=== PATIENT | female | born 1960 | race African-American/Black ===

== ENCOUNTER 2020-04-29 13:09 | Inpatient (IN) ==
[2020-04-29] MEDS ORDERED: Haloperidol 5 mg/ml SDV IV/IM 5 MG/ML AMP IM ONE (13:19)
[2020-04-29 13:48] LABS: ABS Lymphocytes 0.8 10^3/ul (1.0-4.8); ABS Monocytes 0.3 10^3/ul (0-0.8); ABS Neutrophils 2.8 10^3/ul (1.5-7.7); Eosinophil % 0.2 %; Hematocrit 41 % (35-47); Hemoglobin 13.2 g/dL (12.0-16.0); Mean Corpuscular HGB Conc 32 g/dL (31-36); Mean Corpuscular Hemoglobin 29 pg (27-31); Mean Corpuscular Volume 90 fL (80-97); Mean Platelet Volume 9.3 fL (7.4-10.4); Nucleated Red Blood Cells % 0.1; Platelet Count 188 10^3/uL (150-450); Red Blood Count 4.53 10^6 /uL (3.70-4.87); Red Cell Distribution Width 14 % (10-15); White Blood Count 3.9 10^3/uL (3.5-10.8)
[2020-04-29 14:05] LABS: ALT 12 U/L (7-52); AST 14 U/L (13-39); Albumin 4.7 g/dL (3.2-5.2); Albumin/Globulin Ratio 1.6 (1-3); Alkaline Phosphatase 84 U/L (34-104); Anion Gap 13 mmol/L (2-11); BUN/Creatinine Ratio 21.1 (8-20); Blood Urea Nitrogen 16 mg/dL (6-24); CO2 Carbon Dioxide 26 mmol/L (22-32); Chloride 105 mmol/L (101-111); EGFR African American 94.9 (>60); EGFR Non-African American 78.4 (>60); Glucose 102 mg/dL (70-100); Potassium 3.7 mmol/L (3.5-5.0); Sodium 144 mmol/L (135-145); Total Protein 7.7 g/dL (6.4-8.9)
[2020-04-29 14:17] LABS: Acetaminophen < 15 mcg/mL; Alcohol, S < 10 mg/dL (<10); Salicylate < 2.50 mg/dL (<30); Valproic Acid < 13.0 mcg/mL (50-100)
[2020-04-29 14:31] LABS: TSH Ultra Thyroid Stim Horm 0.88 mcIU/mL (0.34-5.60)
[2020-04-29] MEDS ORDERED: Al Hydrox/Mg Hydrox/Simet LIQ 30 ML UDC PO PRN (16:58)
[2020-04-29] MEDS ORDERED: Nicotine GUM 2MG FRUIT FLAVOR PO PRN (16:58)
[2020-04-30] MEDS ORDERED: Lorazepam PYXIS KEY PRN (12:28)
[2020-04-30] MEDS ORDERED: LORazepam 2 mg VIAL 1 ml IM ONE (12:28)
[2020-05-01] MEDS: Aspirin EC 81 mg TAB.EC (enteric coated) PO SCH (11:27)
[2020-05-02] MEDS: Aspirin EC 81 mg TAB.EC (enteric coated) PO SCH (14:29)
[2020-05-03] MEDS: Aspirin EC 81 mg TAB.EC (enteric coated) PO SCH (10:14)
[2020-05-03] MEDS ORDERED: Lorazepam PYXIS KEY PRN (10:14)
[2020-05-03] MEDS ORDERED: LORazepam 2 mg VIAL 1 ml IM ONE (10:14)
[2020-05-03] MEDS ORDERED: Lorazepam PYXIS KEY ONE (10:22)
[2020-05-03] MEDS ORDERED: LORazepam 2 mg VIAL 1 ml ONE (10:22)
[2020-05-04] MEDS: Aspirin EC 81 mg TAB.EC (enteric coated) PO SCH (11:31)
[2020-05-05] MEDS: Aspirin EC 81 mg TAB.EC (enteric coated) PO SCH (12:11)
[2020-05-06] MEDS: Aspirin EC 81 mg TAB.EC (enteric coated) PO SCH (08:50)
[2020-05-06] MEDS: Multivitamins/Minerals TAB PO SCH (11:34)
[2020-05-07] MEDS: Aspirin EC 81 mg TAB.EC (enteric coated) PO SCH (10:16)
[2020-05-07] MEDS: Multivitamins/Minerals TAB PO SCH (10:17)
[2020-05-08] MEDS ORDERED: Haloperidol 5 mg/ml SDV IV/IM 5 MG/ML AMP IM ONE (09:54)
[2020-05-08] MEDS: Aspirin EC 81 mg TAB.EC (enteric coated) PO SCH (10:32)
[2020-05-08] MEDS: Multivitamins/Minerals TAB PO SCH (10:33)
[2020-05-09] MEDS: Aspirin EC 81 mg TAB.EC (enteric coated) PO SCH (12:18)
[2020-05-09] MEDS: Multivitamins/Minerals TAB PO SCH (12:19)
[2020-05-09] MEDS ORDERED: Haloperidol 5 mg/ml SDV IV/IM 5 MG/ML AMP IM PRN (18:25)
[2020-05-10] MEDS ORDERED: Haloperidol 5 mg/ml SDV IV/IM 5 MG/ML AMP IM PRN ×2 (08:24→11:09)
[2020-05-10] MEDS: Aspirin EC 81 mg TAB.EC (enteric coated) PO SCH (09:32)
[2020-05-10] MEDS: Multivitamins/Minerals TAB PO SCH (09:33)
[2020-05-10 10:55] LABS: ABS Eosinophils 0.1 10^3/ul (0-0.6); ABS Lymphocytes 0.9 10^3/ul (1.0-4.8); ABS Monocytes 0.2 10^3/ul (0-0.8); ABS Neutrophils 1.8 10^3/ul (1.5-7.7); Eosinophil % 3.3 %; Hematocrit 36 % (35-47); Hemoglobin 11.7 g/dL (12.0-16.0); Lymphocyte % 28.7 %; Mean Corpuscular HGB Conc 32 g/dL (31-36); Mean Corpuscular Hemoglobin 29 pg (27-31); Mean Corpuscular Volume 89 fL (80-97); Mean Platelet Volume 9.1 fL (7.4-10.4); Platelet Count 165 10^3/uL (150-450); Red Blood Count 4.06 10^6 /uL (3.70-4.87); Red Cell Distribution Width 14 % (10-15)
[2020-05-10 11:27] LABS: Albumin/Globulin Ratio 1.7 (1-3); Calcium 9.5 mg/dL (8.6-10.3); EGFR African American 117.9 (>60); EGFR Non-African American 97.4 (>60); Globulin 2.3 g/dL (2-4); HDL Cholesterol 60.4 mg/dL; Potassium 3.8 mmol/L (3.5-5.0); Total Bilirubin 0.4 mg/dL (0.2-1.0); Total Protein 6.3 g/dL (6.4-8.9)
[2020-05-11] MEDS: Aspirin EC 81 mg TAB.EC (enteric coated) PO SCH (08:19)
[2020-05-11] MEDS: Multivitamins/Minerals TAB PO SCH (08:19)
[2020-05-12] MEDS: Aspirin EC 81 mg TAB.EC (enteric coated) PO SCH (08:45)
[2020-05-12] MEDS: Multivitamins/Minerals TAB PO SCH (08:46)
[2020-05-13] MEDS: Aspirin EC 81 mg TAB.EC (enteric coated) PO SCH (09:28)
[2020-05-13] MEDS: Multivitamins/Minerals TAB PO SCH (09:28)
[2020-05-14] MEDS: Multivitamins/Minerals TAB PO SCH (09:24)
[2020-05-14] MEDS: Aspirin EC 81 mg TAB.EC (enteric coated) PO SCH (09:25)
[2020-05-15] MEDS: Aspirin EC 81 mg TAB.EC (enteric coated) PO SCH (09:04)
[2020-05-15] MEDS: Multivitamins/Minerals TAB PO SCH (09:05)
[2020-05-16] MEDS: Aspirin EC 81 mg TAB.EC (enteric coated) PO SCH (10:39)
[2020-05-16] MEDS: Multivitamins/Minerals TAB PO SCH (10:40)
[2020-05-17 09:13] VITALS: BP 113/73
[2020-05-17] MEDS: Aspirin EC 81 mg TAB.EC (enteric coated) PO SCH (09:57)
[2020-05-17] MEDS: Multivitamins/Minerals TAB PO SCH (09:57)
== END 2020-05-17 12:56 | disposition home or self-care (01) | DRG 885 ==
LOC: ED 13:09 → BSU 21:16
PROVIDERS: ADMIT Psychiatry & Neurology Psychiatry; ATTEND Psychiatry & Neurology Psychiatry

== ENCOUNTER 2021-01-05 20:10 | Inpatient (IN) ==
[2021-01-05 22:11] LABS: ABS Eosinophils 0.1 10^3/ul (0-0.6); ABS Lymphocytes 0.7 10^3/ul (1.0-4.8); ABS Monocytes 0.4 10^3/ul (0-0.8); ABS Neutrophils 2.3 10^3/ul (1.5-7.7); Eosinophil % 2.4 %; Hematocrit 38 % (35-47); Hemoglobin 12.7 g/dL (12.0-16.0); Lymphocyte % 19.9 %; Mean Corpuscular HGB Conc 33 g/dL (31-36); Mean Corpuscular Hemoglobin 28 pg (27-31); Mean Corpuscular Volume 83 fL (80-97); Mean Platelet Volume 8.5 fL (7.4-10.4); Nucleated Red Blood Cells % 0.1; Platelet Count 226 10^3/uL (150-450); Red Blood Count 4.61 10^6 /uL (3.70-4.87); Red Cell Distribution Width 14 % (10-15); White Blood Count 3.5 10^3/uL (3.5-10.8)
[2021-01-05 22:28] LABS: ALT 6 U/L (7-52); AST 13 U/L (13-39); Albumin 4.1 g/dL (3.2-5.2); Albumin/Globulin Ratio 1.3 (1-3); Alkaline Phosphatase 80 U/L (34-104); Anion Gap 13 mmol/L (2-11); Blood Urea Nitrogen 10 mg/dL (6-24); CO2 Carbon Dioxide 25 mmol/L (22-32); Calcium 9.2 mg/dL (8.6-10.3); Chloride 98 mmol/L (101-111); EGFR African American 111.3 (>60); Globulin 3.1 g/dL (2-4); Glucose 93 mg/dL (70-100); Potassium 2.8 mmol/L (3.5-5.0); Sodium 136 mmol/L (135-145); Total Protein 7.2 g/dL (6.4-8.9)
[2021-01-05 22:34] LABS: Acetaminophen < 15 mcg/mL; Alcohol, S < 10 mg/dL (<10); Salicylate < 2.50 mg/dL (<30)
[2021-01-06] MEDS ORDERED: Potassium Chlor 10 meq TAB PO ONE (02:02)
[2021-01-06 07:54] LABS: Urine Appearance Clear; Urine Bilirubin Negative (Negative); Urine Blood 2+ (Negative); Urine Color Yellow; Urine Glucose Negative (Negative); Urine Ketones 1+ (Negative); Urine Nitrite Negative (Negative); Urine Protein Negative (Negative); Urine Specific Gravity 1.008 (1.002-1.030); Urine Urobilinogen Negative (Negative)
[2021-01-06 07:57] LABS: Urine Bacteria Absent (Absent); Urine Red Blood Cell Trace(0-2/hpf) (Absent); Urine Squamous Epithelial Cell Present (Absent); Urine White Blood Cell 1+(6-10/hpf) (Absent)
[2021-01-06 08:16] LABS: Urine Benzodiazepine Screen None Detected (None Detect); Urine Cannabinoids Screen None Detected (None Detect); Urine Opiates Screen None Detected (None Detect)
[2021-01-06] MEDS ORDERED: Al Hydrox/Mg Hydrox/Simet LIQ 30 ML UDC PO PRN (08:54)
[2021-01-06] MEDS: Aspirin EC 81 mg TAB.EC (enteric coated) PO SCH (10:03)
[2021-01-06] MEDS: Vitamin THERAPEUTIC TAB PO SCH (10:06)
[2021-01-06 14:50] LABS: Albumin 3.8 g/dL (3.2-5.2); Albumin/Globulin Ratio 1.3 (1-3); Calcium 9.2 mg/dL (8.6-10.3); EGFR African American 80.9 (>60); EGFR Non-African American 66.9 (>60); Globulin 2.9 g/dL (2-4); Potassium 3.7 mmol/L (3.5-5.0); Total Bilirubin 0.6 mg/dL (0.2-1.0); Total Protein 6.7 g/dL (6.4-8.9)
[2021-01-07 08:23] LABS: HDL Cholesterol 53.4 mg/dL
[2021-01-07] MEDS: Vitamin THERAPEUTIC TAB PO SCH (10:23)
[2021-01-07] MEDS: Aspirin EC 81 mg TAB.EC (enteric coated) PO SCH (13:15)
[2021-01-08] MEDS: Aspirin EC 81 mg TAB.EC (enteric coated) PO SCH (09:31)
[2021-01-08] MEDS: Vitamin THERAPEUTIC TAB PO SCH (09:31)
[2021-01-09] MEDS: Vitamin THERAPEUTIC TAB PO SCH (08:48)
[2021-01-09] MEDS: Aspirin EC 81 mg TAB.EC (enteric coated) PO SCH (08:48)
[2021-01-10] MEDS: Aspirin EC 81 mg TAB.EC (enteric coated) PO SCH (10:20)
[2021-01-10] MEDS: Vitamin THERAPEUTIC TAB PO SCH (10:22)
[2021-01-11] MEDS: Aspirin EC 81 mg TAB.EC (enteric coated) PO SCH (08:30)
[2021-01-11] MEDS: Vitamin THERAPEUTIC TAB PO SCH (08:31)
[2021-01-12] MEDS: Aspirin EC 81 mg TAB.EC (enteric coated) PO SCH (09:15)
[2021-01-12] MEDS: Vitamin THERAPEUTIC TAB PO SCH (09:15)
[2021-01-13] MEDS: Aspirin EC 81 mg TAB.EC (enteric coated) PO SCH (09:17)
[2021-01-13] MEDS: Vitamin THERAPEUTIC TAB PO SCH (09:17)
[2021-01-14 08:12] VITALS: BP 121/84
[2021-01-14] MEDS: Aspirin EC 81 mg TAB.EC (enteric coated) PO SCH (09:04)
[2021-01-14] MEDS: Vitamin THERAPEUTIC TAB PO SCH (09:06)
== END 2021-01-14 13:10 | disposition home or self-care (01) | DRG 750 ==
LOC: ED 20:10 → BSU 01-06 14:55
PROVIDERS: ADMIT Psychiatry & Neurology Psychiatry; ATTEND Psychiatry & Neurology Psychiatry

== ENCOUNTER 2022-12-27 09:44 | Inpatient (IN) ==
[2022-12-27 11:09] LABS: Urine Appearance Cloudy; Urine Bilirubin Negative (Negative); Urine Blood Negative (Negative); Urine Color Amber; Urine Glucose Negative (Negative); Urine Ketones 1+ (Negative); Urine Nitrite Negative (Negative); Urine Protein 3+(>=500 mg/dL) (Negative); Urine Specific Gravity 1.028 (1.002-1.030); Urine Urobilinogen Positive (Negative)
[2022-12-27 11:23] LABS: Urine Bacteria Absent (Absent); Urine Granular Casts Present (Absent); Urine Red Blood Cell 2+(6-10/hpf) (Absent); Urine Squamous Epithelial Cell Present (Absent); Urine White Blood Cell 3+(>20/hpf) (Absent)
[2022-12-27 11:29] LABS: Urine Benzodiazepine Screen None Detected (None Detect); Urine Cannabinoids Screen None Detected (None Detect); Urine Opiates Screen None Detected (None Detect)
[2022-12-27 12:40] LABS: ABS Eosinophils 0.1 10^3/uL (0.0-0.5); ABS Lymphocytes 0.7 10^3/uL (1.0-4.8); ABS Monocytes 0.3 10^3/uL (0.0-0.9); ABS Neutrophils 3.6 10^3/uL (1.5-7.6); ABS Nucleated RBC 0.01 10^3/ul; Eosinophil % 1.2 %; Hematocrit 44.7 % (35-45); Hemoglobin 14.7 g/dL (11.5-14.3); Lymphocyte % 15.3 %; Mean Corpuscular Hemoglobin 26.5 pg (27-33); Mean Corpuscular Hgb Conc 32.8 g/dL (31-36); Mean Corpuscular Volume 80.8 fL (80-97); Mean Platelet Volume 8.2 fL (7.5-11.2); Nucleated Red Blood Cells % 0.1 /100 WBC (0.0-0.4); Platelet Count 241 10^3/uL (150-450); Red Blood Count 5.53 10^6/uL (3.63-4.92); Red Cell Distribution Width 14.5 % (12-17); White Blood Count 4.7 10^3/uL (3.8-11.8)
[2022-12-27 13:22] LABS: ALT 7 U/L (7-52); AST 14 U/L (13-39); Acetaminophen < 15 mcg/mL; Albumin 4.6 g/dL (3.2-5.2); Albumin/Globulin Ratio 0.9 (1-3); Alcohol, S < 13 mg/dL (<13); Alkaline Phosphatase 124 U/L (35-149); Anion Gap 13 mmol/L (2-16); Blood Urea Nitrogen 12 mg/dL (6-24); CO2 Carbon Dioxide 25 mmol/L (22-32); Chloride 103 mmol/L (101-111); Creatinine, Serum 0.64 mg/dL (0.51-0.95); Globulin 4.9 g/dL (2-4); Glucose 86 mg/dL (70-100); Potassium 3.6 mmol/L (3.5-5.0); Salicylate < 2.50 mg/dL (<30); Sodium 141 mmol/L (135-145); Total Protein 9.5 g/dL (6.4-8.9); eGFR CKD-EPI 101.1 (>60)
[2022-12-27 13:35] LABS: TSH Ultra Thyroid Stim Horm 0.71 mcIU/mL (0.34-5.60)
[2022-12-28] MEDS: Aspirin EC 81 mg TAB.EC (enteric coated) PO SCH ×2 (10:22→10:35)
[2022-12-29] MEDS: Aspirin EC 81 mg TAB.EC (enteric coated) PO SCH (11:02)
[2022-12-30] MEDS: Aspirin EC 81 mg TAB.EC (enteric coated) PO SCH (10:43)
[2022-12-31] MEDS: Aspirin EC 81 mg TAB.EC (enteric coated) PO SCH (09:34)
[2023-01-01] MEDS: Aspirin EC 81 mg TAB.EC (enteric coated) PO SCH (09:29)
[2023-01-02] MEDS: Aspirin EC 81 mg TAB.EC (enteric coated) PO SCH (09:43)
[2023-01-03] MEDS: Aspirin EC 81 mg TAB.EC (enteric coated) PO SCH (08:48)
[2023-01-04] MEDS: Aspirin EC 81 mg TAB.EC (enteric coated) PO SCH (10:03)
[2023-01-05] MEDS: Aspirin EC 81 mg TAB.EC (enteric coated) PO SCH (09:23)
[2023-01-05 09:25] LABS: Albumin 3.8 g/dL (3.2-5.2); Albumin/Globulin Ratio 0.9 (1-3); Calcium 9.1 mg/dL (8.6-10.3); Creatinine, Serum 0.76 mg/dL (0.51-0.95); Globulin 4.3 g/dL (2-4); Potassium 4.8 mmol/L (3.5-5.0); Total Bilirubin 0.3 mg/dL (0.2-1.0); Total Protein 8.1 g/dL (6.4-8.9); eGFR CKD-EPI 89.7 (>60)
[2023-01-06 09:18] VITALS: BP 127/83
[2023-01-06] MEDS: Aspirin EC 81 mg TAB.EC (enteric coated) PO SCH (09:31)
== END 2023-01-06 14:10 | disposition home or self-care (01) | DRG 753 ==
LOC: ED 09:44 → BSU 14:26
PROVIDERS: ADMIT Psychiatry & Neurology Psychiatry; ATTEND Psychiatry & Neurology Psychiatry